=== PATIENT | female | born 1995 | race Two or more races ===

== ENCOUNTER 2021-10-14 03:35 | Emergency (ER) | payer OTHER ==
[~2021-10-14] VITALS: Ht 160 cm; Wt 145.1 kg
[2021-10-14] MEDS ORDERED: ALLEGRA ALLERGY60 MG PO (03:49)
== END 2021-10-14 10:24 | disposition home or self-care (01) ==
LOC: ER 03:35
DX: J32.9 Chronic sinusitis, unspecified (principal); Z88.8 Allergy status to other drugs, medicaments and biological substances; R07.89 Other chest pain; D64.9 Anemia, unspecified